=== PATIENT | female | born 1945 | race African-American/Black ===

== ENCOUNTER 2016-12-08 13:08 | Inpatient (IN) ==
[2016-12-08 14:22] LABS: Basophils # 0.1 10*3/uL (0.0-0.2); Basophils % 0.9 % (0.0-0.8); Eosinophils # 0.3 10*3/uL (0.0-0.87); Eosinophils % 4.2 % (0.00-10.9); Hematocrit 39.6 VOL% (35.7-47.0); Hemoglobin 13.6 GM/DL (12.0-16.0); Immature Granulocytes % 0.4 %; Immature Granulocytes Absolute 0.03 #; Lymphocytes # 1.8 10*3/uL (1.4-4.0); Lymphocytes % 23.8 % (21.3-54.2); Mean Corpuscular HGB Conc 34.3 GM/DL (32-36); Mean Corpuscular Hemoglobin 30 PG (27-34); Mean Corpuscular Volume 88.6 FL (87-102); Mean Platelet Volume 11.9 FL (9.6-12.0); Monocytes # 0.6 10*3/uL (0.11-0.8); Monocytes % 7.3 % (1.7-12.7); Neutrophils # 4.9 10*3/uL (1.4-7.4); Neutrophils % 63.4 % (38.7-73.9); Platelet Count 203 T/CUMM (130-400); Red Blood Count 4.47 MC/CUMM (3.8-5.5); Red Cell Distribution Width 11.9 % (9.3-17.3); White Blood Count 7.7 T/CUMM (4-12)
[2016-12-08 14:24] LABS: Apearance,Urine CLEAR (Clear); Bilirubin,Urine Negative (Negative); Blood, Urine Negative (Negative); Glucose,Urine (UA) Negative (Negative); Ketones,Urine Negative (Negative); Nitrite,Urine Negative (Negative); Protein,Urine Negative; RBC,Urine 1 /HPF (0-4); Squamous Epithelial Cell,Urine Occasional /HPF (0-10); Urine Color Straw (Yellow); Urine Specific Gravity 1.002 (1.001-1.035); Urine Urobilinogen < 2.0 EU/DL (0.2-1.0); WBC,Urine 1 /HPF (0-6)
[2016-12-08 14:35] LABS: INR 1.1; PT Patient Result 11.3 SECS; Partial Thromboplastin Time 40.6 SECS (0-40)
--- NOTE | 2016-12-08 14:40 | XRay Report ---
XR chest 2V Indication: Chest pain. Chest 2 views: Comparison 07/11/2009. The heart size and mediastinal contour are normal. The lungs and pleural spaces are clear. Bones are unremarkable. Impression: Negative chest. PROCEDURE INTERPRETED AT [facility] DEPARTMENT OF RADIOLOGY Final Report Signed by: Michael Balderas M.D.
[2016-12-08 14:50] LABS: Magnesium 2.3 MG/DL (1.8-2.4)
[2016-12-08 14:56] LABS: Albumin 3.6 G/DL (3.4-5.0); Bilirubin,Total 0.7 MG/DL (0.2-1.0); Calcium 9.7 MG/DL (8.5-10.1); Osmolality,Calculated 283.1 MOS/KG (273-304); Potassium 3.7 MMOL/L (3.5-5.1); Total Protein 7.4 G/DL (6.4-8.3)
--- NOTE | 2016-12-08 15:26 | Emergency Department Note ---
Arrival - Arrival Chief Complaint: Chest Pain Stated Complaint: heart racing ED Nursing Triage Note: PT C/O MIDSTERNAL CHEST PAIN X1 WEEK WITH INTERMITTENT FEELINGS OF HER HEART RACING AND SHORTNESS OF BREATH. Mode of Arrival: Ambulatory Time Seen by Provider: 12/08/16 15:10 - History of Present Illness HPI Narrative: Patient presents to the ER today with complaints of heart racing since last week. She states is worse today. He states when her heart races she gets short of breath, fatigued, and very nauseated. She states she has noticed over the past few days she has been getting short of breath with any kind of exertion and feels like she is going to pass out. She also noted some minor feet swelling around the night but states after a few days it went away. She states she had a stress test "a long time ago" and states it was negative. She states her heart doctor told her she does not need to see him anymore so she never went back. She states her family doctor told her she has some murmur but does not think she ever had an echo. She denies fever. PCP-Dr. Scott Allergies-iodine PMH-hypertension, thyroid disorder, depression Date of Last Menstrual Period: HENRY Allergies/Adverse Reactions: Allergies Allergy/AdvReac Type Severity Reaction Status Date / Time iodine Allergy Unknown/Unable Verified 12/08/16 13:15 to obtain Review of System - Review of System 12 point system: reviewed and no additional remarkable complaints except as stated - Review of System Constitutional: Absent: chills, fever Cardiovascular: Present: as per HPI, chest pain, palpitations, dyspnea on exertion, edema, syncope (Near syncope with exertion) Gastrointestinal: Present: as per HPI, nausea. Absent: abdominal pain, vomiting , diarrhea, constipation Endocrine: Present: as per HPI, fatigue Medical,Surgical,& Family Hx - Medical History Cardio: History of: Hypertension Psychological: History of: Depression Endocrine: History of: Thyroid Disorder - Social History Smoking Status: Never smoker Frequency of Alcohol Use: None Type of Drug Use: None Exam Physical Examination: General General appearance: 71-year-old black female is alert and in no apparent distress - Head Head exam: Present: atraumatic, normocephalic, normal inspection - Eye Eye exam: Present: normal appearance, PERRL, EOMI - ENT ENT exam: Present: mucous membranes moist - Neck Neck exam: Present: normal inspection, full ROM, trachea midline - Chest Chest inspection: Present: normal inspection, symmetric chest wall rise - Respiratory Respiratory exam: Present: normal lung sounds bilaterally - Cardiovascular Cardiovascular exam: Present: irregular rate, abnormal heart sounds - Abdominal Exam Abdominal exam: Present: soft, normal bowel sounds,nontender - Rectal Exam Rectal exam: Present: deferred - Extremities Exam Extremities exam: Present: normal inspection, full ROM, normal capillary refill , no edema noted on exam - Back Exam Back exam: Present: normal inspection, full ROM - Neurological Exam Neurological exam: Present: alert, oriented X3, CN II-XII grossly intact - Psychiatric Psychiatric exam: Present: normal affect, normal mood - Skin Skin exam: Present: warm, dry, intact, normal color, Vital Signs: Vital Signs Temperature 98.3 F 12/08/16 15:11 Pulse Rate 85 12/08/16 15:11 Respiratory Rate 16 12/08/16 15:11 Blood Pressure 135/86 12/08/16 15:11 O2 Sat by Pulse Oximetry 98 12/08/16 13:12 Course Course Narrative: 1525: michelle hospitalist 1536: spoke with hospitalist team, they will come see her 1559: Josiane Hospitalist [employer] ANALYST assessed the patient and will admit the patient Results - Labs CBC & BMP: 12/08/16 14:01 12/08/16 14:01 Labs: Laboratory Tests 12/08/16 14:01 INR 1.1 PT Patient/Control Mix 11.3 Circ Anticoag PTT 40.6 H Laboratory Tests 12/08/16 12/08/16 12/08/16 14:01 14:01 14:01 Sodium 142 Potassium 3.7 Chloride 109 H Carbon Dioxide 26 Anion Gap 10.7 BUN 12 Creatinine 0.90 GFR Calculation 74 BUN/Creatinine Ratio 13.00 Glucose 111 H Calculated Osmolality 283.1 Calcium 9.7 Magnesium Total Bilirubin 0.70 AST 18 ALT 27 Alkaline Phosphatase 98 Troponin I < 0.015 B-Natriuretic Peptide 252 H Total Protein 7.4 Albumin 3.6 Globulin 3.8 H Albumin/Globulin Ratio 0.9 L Lipase 12/08/16 14:01 Sodium Potassium Chloride Carbon Dioxide Anion Gap BUN Creatinine GFR Calculation BUN/Creatinine Ratio Glucose Calculated Osmolality Calcium Magnesium 2.3 Total Bilirubin AST ALT Alkaline Phosphatase Troponin I B-Natriuretic Peptide Total Protein Albumin Globulin Albumin/Globulin Ratio Lipase 141.0 Laboratory Tests 12/08/16 14:01 Urine Color Straw Urine Appearance Clear Urine pH 6.0 Ur Specific [place] 1.002 Urine Protein Negative Urine Glucose (UA) Negative Urine Ketones Negative Urine Blood Negative Urine Nitrate Negative Urine Bilirubin Negative Urine Urobilinogen < 2.0 H Urine Leukocytes Negative Urine RBC 1 Urine WBC 1 Ur Squamous Epith Cells Occasional Ur Culture Indicated? Not indicated - EKG EKG results: interpreted by ERMD - Impressions Ordering Physician: Peg Packer NP Date of Service: 12/08/16 Procedure(s): XR chest 2V Accession Number(s): [id number] cc: Peg Packer NP~ XR chest 2V Indication: Chest pain. Chest 2 views: Comparison 07/11/2009. The heart size and mediastinal contour are normal. The lungs and pleural spaces are clear. Bones are unremarkable. Impression: Negative chest. PROCEDURE INTERPRETED AT [facility] DEPARTMENT OF RADIOLOGY Final Report Signed by: Michael Balderas M.D. - Diagnostic Findings Procedure: Chest x-ray: report reviewed by me (See Impression ) Disposition Clinical Impression: SOB (shortness of breath) on exertion, Heart palpitations Case discussed with: patient Disposition: Still a Patient Condition: Stable
--- NOTE | 2016-12-08 16:22 | Hospitalist History & Physical ---
Assessment and Plan - Time spent with patient Time spent with patient: Greater than 30 minutes (1) Heart palpitations Status: Acute Assessment and plan: Heart palpitations with mid sternal chest discomfort, increased fatigue, exertional shortness of breath, and dizziness for 2-3 days. Will admit to TU for close monitoring. Serial Troponin, repeat EKG, Thyroid levels, will discuss with Dr Acosta for further recommendations with care. Current Visit: Yes (2) Fatigue Status: Acute Assessment and plan: Increased fatigue 2-3 days with increased need to frequently rest and shortness of breath especially with exertion. Will admit on TU for close monitoring. Current Visit: Yes (3) SOB (shortness of breath) on exertion Status: Acute Assessment and plan: Will admit. Supplemental oxygen ordered. Will discuss with Dr Acosta for further recommendations of care. Current Visit: Yes History of Present Illness Chief complaint: chest pain, shortness of breath, History of present illness: Ms. Reza is a 71 year old black female w/ PMHx hypertension, depression, thyroid, fatigue, anxiety; presented to the ED for further evaluation of shortness of breath especially with exertion, heart "racing", mid-sternal chest discomfort, and worsening fatigue for the past 2-3 days. Patient reports worsening fatigue and having to frequently rest after trying to do things around the house, so that she can "catch my breath". She reports dizziness with the shortness of breath. She denies any nausea, vomiting, fever or chills. In ED: CXR: negative chest. WBC 7.7; H&H 13.6 & 39.6; INR 1.1; PT 11.3; PTT 40.6; NA 142; K 3.7; BUN 12; Creatinine 0.90; Ca 9.7; Mag 2.3; Troponin < 0.015; Urinalysis negative. She denies smoking, denies alcohol use and denies drug use. After discussion with Peg WHEELER in ED and Dr Acosta in Hospital Medicine, it was agreed to admit patient for further evaluation of chest discomfort, shortness of breath and associated dizziness. Allergies Allergy/AdvReac Type Severity Reaction Status Date / Time iodine Allergy Unknown/Unable Verified 12/08/16 13:15 to obtain Medical,Surgical,& Family Hx - Medical History Cardio: History of: Hypertension Psychological: History of: Anxiety Disorders, Depression Endocrine: History of: Thyroid Disorder - Social History Smoking Status: Never smoker Frequency of Alcohol Use: None Type of Drug Use: None Marital Status: Lives With:: a cousin lives in her home too Functional capacity: independent ambulation Review of systems: ROS completed and pertinent positives and negatives in the HPI. Exam - Constitutional Vitals: Period Temp Pulse Resp BP Sys/Son Pulse Ox Last 24 Hr 98.3 F-98.3 F 67-85 16-16 135-135/68-86 98 General appearance: normal weight, no acute distress - Head Head exam: Present: normal inspection - Eye Eye exam: Present: EOMI Pupils: Present: BEVERLY - Neck Neck exam: Present: normal inspection, other (s/p thryroidectomy 2003). Absent : thyromegaly - Respiratory Respiratory exam: Present: clear to auscultation bilaterally. Absent: rhonchi, stridor, wheezes - Cardiovascular Cardiovascular exam: Present: irregular rhythm - GI/Abdominal GI/Abdominal exam: Present: normal bowel sounds, soft. Absent: tenderness, rebound - Extremities Exam Extremities exam: Present: normal inspection, full ROM. Absent: edema - Neurological Exam Neurological exam: Present: alert, oriented X3 - Psychiatric Psychiatric exam: Present: normal affect, normal mood. Absent: agitated, anxious - Skin Skin exam: Present: normal color, warm, dry Results - Labs CBC & BMP: 12/08/16 14:01 12/08/16 14:01 Lab Results: I have reviewed the past 24 hour labs - EKG EKG results: interpreted by ERMD - Diagnostic Findings Procedure: Chest x-ray: report reviewed by me (negative)
[2016-12-08] MEDS ORDERED: ACETAMINOPHEN 325 MG TABLET PO PRN (16:36)
[2016-12-08] MEDS ORDERED: DOCUSATE SODIUM 100 MG CAPSULE PO PRN (16:36)
[2016-12-08] MEDS ORDERED: ONDANSETRON 4 MG/2 ML VIAL IV PRN (16:36)
[2016-12-08] MEDS: ENOXAPARIN 40 MG/0.4 ML SYRINGE SUBCUT SCH ×2 (18:13→18:27)
[2016-12-08] MEDS: SODIUM CHLORIDE 0.9% 1,000 ML IV SCH (18:14)
[2016-12-08] MEDS: ZALEPLON 5 MG CAPSULE PO PRN (20:32)
[2016-12-09] MEDS: SODIUM CHLORIDE 0.9% 1,000 ML IV SCH ×2 (02:23→11:15)
[2016-12-09 04:39] LABS: Basophils % 0.7 % (0.0-0.8); Eosinophils # 0.4 10*3/uL (0.0-0.87); Eosinophils % 5.7 % (0.00-10.9); Hematocrit 35.4 VOL% (35.7-47.0); Immature Granulocytes % 0.3 %; Immature Granulocytes Absolute 0.02 #; Lymphocytes % 32.4 % (21.3-54.2); Mean Corpuscular HGB Conc 33.9 GM/DL (32-36); Mean Corpuscular Hemoglobin 30 PG (27-34); Mean Corpuscular Volume 89.6 FL (87-102); Mean Platelet Volume 11.9 FL (9.6-12.0); Monocytes # 0.4 10*3/uL (0.11-0.8); Monocytes % 6.5 % (1.7-12.7); Neutrophils # 3.3 10*3/uL (1.4-7.4); Neutrophils % 54.4 % (38.7-73.9); Platelet Count 176 T/CUMM (130-400); Red Blood Count 3.95 MC/CUMM (3.8-5.5); Red Cell Distribution Width 11.9 % (9.3-17.3); White Blood Count 6.1 T/CUMM (4-12)
[2016-12-09 05:12] LABS: Albumin 3.2 G/DL (3.4-5.0); Bilirubin,Total 0.7 MG/DL (0.2-1.0); Calcium 8.1 MG/DL (8.5-10.1); Osmolality,Calculated 285.7 MOS/KG (273-304); Potassium 3.4 MMOL/L (3.5-5.1); Risk Ratio 3.02; Total Protein 6.1 G/DL (6.4-8.3)
[2016-12-09 05:34] LABS: Free T4 (Free Thyroxine) 1.15 NG/DL (0.76-1.46); Thyroid Stimulating Hormone 2.71 uIU/ml (0.358-3.74)
--- NOTE | 2016-12-09 08:13 | EKG Report ---
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
[2016-12-09] MEDS: PANTOPRAZOLE 40 MG TABLET PO SCH (08:47)
--- NOTE | 2016-12-09 08:52 | EKG Report ---
Stationary ECG Study [facility] ER Test Date: 12/08/2016 1:18:07 PM Pat Name: ZEINA TELLES Department: Room: 267 Gender: F Lead Caregiver: Kirill Jara : 1945 Requested by: Peg Packer Order Number: [id number] Reading MD: FERNANDEZ HARO Intervals [place] Rate: 66 P: 58 [place]: 141 QRS: 55 QRSD: 73 T: 56 QT: 393 QTc: 407 Interpretive Statements SINUS RHYTHM WITH OCCASIONAL SUPRAVENTRICULAR PREMATURE COMPLEXES NONSPECIFIC T WAVE ABNORMALITY Electronically Signed On 12-09-16 15:52:02 CDT by FERNANDEZ HARO [email or web address]
[2016-12-09] MEDS ORDERED: POTASSIUM CHLORIDE 20 MEQ TABLET PO ONE ×2 (08:54→10:00)
[2016-12-09] MEDS ORDERED: CARVEDILOL 3.125 MG TABLET PO SCH (09:00)
--- NOTE | 2016-12-09 09:33 | Cardiology Consult Note ---
Assessment and Plan - Time spent with patient Time spent with patient: Greater than 30 minutes (1) Paroxysmal SVT (supraventricular tachycardia) Status: Acute Assessment and plan: It appears that patient is having runs of SVT. At home, patient has been taking metoprolol succinate 25 mg every morning. She reports great compliance with this medication. I discussed this personally with Dr. Alexander. We will begin carvedilol. We will continue to monitor patient on the groundwater monitoring technician. We can consider consulting electrophysiology for possible ablation in her future if this does not help her symptoms. Current Visit: Yes (2) Shortness of breath Status: Acute Assessment and plan: Most likely secondary to patient's paroxysmal SVT. Echocardiogram has been ordered per hospital medicine. This is pending. Current Visit: Yes (3) Heart palpitations Status: Acute Assessment and plan: See SVT. Current Visit: Yes (4) Hypokalemia Status: Acute Assessment and plan: We will replace per protocol. 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 Reza is a 71 year old female without known history of coronary artery disease, followed by Dr. Alonso in the remote past. Patient has cardiac risk factors significant for advanced age, hypertension and sedentary lifestyle. Patient is a lifetime non-smoker. She denies any significant family history of coronary artery disease. Patient has a past medical history of depression, anxiety, palpitations and thyroid disorder. Patient was seen by Dr. Alonso back in 2010. She had stress test performed at that time. Perfusion scan suggested normal myocardial perfusion without good evidence to suggest myocardial scar or ischemia. She had normal segmental wall motion. Ejection fraction estimated at 77%. Low risk for future cardiovascular events. Her last echocardiogram was performed December 2014. At that time, left ventricular was normal size with normal LV systolic function, ejection fraction 55%. Mild concentric LVH. Trace mitral insufficiency and 1+ tricuspid insufficiency noted. Pulmonary artery pressure 23 mmHg. No pericardial effusion. Patient presented to [facility] yesterday afternoon with complaints of heart palpitations. She reports that she has been having problems with palpitations for several years. She actually saw Dr. Alonso several years ago for the same problems. However, she feels that her symptoms continue to worsen and last longer. She tells me that these usually occur monthly. However, over the past 1-2 weeks they have been happening at least daily. Usually occurring with exertion. Accompanied with shortness of breath, chest pain and dizziness. She tells me that she actually feels like she is going to pass out. She sits down and rest. This usually makes this better. Yesterday, she reports that her episode was more severe. It lasted longer and it frightened her as she felt that she was going to pass out. She felt that she needed to be further evaluated in the emergency department. Since being admitted to the hospital, she has been noted to have paroxysms of SVT. She has been admitted under hospital medicine service. Cardiology has been consulted to further assist with her symptomology. Of note, patient reports that she has been very stressed lately. This could very well be contributing to her symptomology. Encouraged her to lessen her stress level. She reports that she does drink caffeine regularly. She drinks at least 1-2 cups of tea daily. Patient was seen and examined on the telemetry unit. She is currently without complaints of heart racing, chest pain and shortness of breath. Currently not requiring oxygen. TSH and free T4 normal. Potassium slightly low at 3.4. Will replace as per protocol. Magnesium stable at 2.0. After reviewing groundwater monitoring technician, it appears the patient is having runs of SVT. Chronically, she has been on beta-blockade. She reports great compliance with metoprolol succinate 25 mg daily. I discussed this case personally with Dr. Alexander. We will begin Coreg. We will continue to monitor patient on the groundwater monitoring technician. We can consider consulting electrophysiology for possible ablation in her future if this does not help her symptoms. I will discuss with Dr. Alexander and await his additional recommendations. ASSESSMENT/PLAN: 1. PAROXYSMAL SVT - It appears that patient is having runs of SVT. At home, patient has been taking metoprolol succinate 25 mg every morning. She reports great compliance with this medication. I discussed this personally with Dr. Alexander. We will begin carvedilol. We will continue to monitor patient on the groundwater monitoring technician. We can consider consulting electrophysiology for possible ablation in her future if this does not help her symptoms. 2. HYPERTENSION - Under well control. Continue current plan of care. Monitor blood pressure and adjust medications accordingly this hospitalization. 3. HYPOTHYROIDISM - TSH and free T4 within normal limits. Continue Synthroid. 4. HYPOKALEMIA - Replace per protocol. Could very well be contributing to her paroxysms of SVT CC: Juan Acosta MD - Home Medications and Allergies Home Medications: Home Medications Medication Instructions Recorded Confirmed Type Aspirin EC Tab 81 mg PO QAM 12/08/16 12/08/16 History Cyproheptadine Tab [Periactin Tab] 4 mg PO TID 12/08/16 12/08/16 History Escitalopram Oxalate 20 mg PO QAM 12/08/16 12/08/16 History Ferrous Sulfate [Iron] 325 mg PO QAM 12/08/16 12/08/16 History Levothyroxine Tab [Synthroid Tab] 25 mcg PO DAILY@0700 12/08/16 12/08/16 History Losartan Potassium 100 mg PO QAM 12/08/16 12/08/16 History Metoprolol Succinate 25 mg PO QAM 12/08/16 12/08/16 History Multivitamin/Iron/Folic Acid 1 each PO QAM 12/08/16 12/08/16 History [Centrum Complete Multivit Tab] [place]-3/Dha/Epa/Fish Oil [Fish Oil 1 each PO DAILY 12/08/16 12/08/16 History 1,000 mg Softgel] amLODIPine [Norvasc] 10 mg PO QAM 12/08/16 12/08/16 History Allergies/Adverse Reactions: Allergies Allergy/AdvReac Type Severity Reaction Status Date / Time iodine Allergy Unknown/Unable Verified 12/08/16 13:15 to obtain - Constitutional Constitutional: Present: fatigue, lethargy, malaise. Absent: chills, excessive sweating, fever(s), weight gain, weight loss - Cardiovascular Cardiovascular: Present: as per HPI, dyspnea, lightheadedness, palpitations. Absent: diaphoresis, edema, radiating jaw, neck or arm pain, orthopnea, PND - Respiratory Respiratory: Present: as per HPI, dyspnea, change in phlegm color - Gastrointestinal Gastrointestinal: Present: as per HPI. Absent: coffee ground emesis, heartburn , hematemesis, hematochezia, loose stools, melena, nausea, vomiting - Neurological Neurological: Present: as per HPI, dizziness, other (Near syncope). Absent: abnormal gait, abnormal speech, behavioral changes, frequent falls, syncope - Psychiatric Psychiatric: Present: as per HPI, anxiety, depression, panic attacks Medical,Surgical,& Family Hx - Medical History Cardio: History of: Hypertension Psychological: History of: Anxiety Disorders, Depression Endocrine: History of: Thyroid Disorder - Social History Smoking Status: Never smoker Frequency of Alcohol Use: None Type of Drug Use: None Marital Status: Lives With:: Alone Functional capacity: independent ambulation Physical Examination Vital Signs Temp Pulse Resp BP Pulse Ox 98.3 F 67 16 135/68 98 12/08/16 13:12 12/08/16 13:12 12/08/16 13:12 12/08/16 13:12 12/08/16 13:12 Exam: General: Appears well with no apparent distress. Pleasant and cooperative. Appears comfortable. HEENT: PERRL, normocephalic, atraumatic. Mucous membranes moist. No jaundice noted. Conjunctiva moist and clear, sclerae anicteric Neck: No JVD/HJRor lymphadenopathy noted. No carotid bruit appreciated Cardiac: Regular rate and rhythm. Lungs: Clear to auscultation without accessory muscle use to assist the respiratory pattern. Abdomen: Soft, bowel sounds normoactive. Nontender and nondistended. No abdominal bruit or thrill noted. No masses noted. Extremities: No clubbing, cyanosis noted. No edema noted. Upper extremity pulses 2+. Lower extremity pulses 2+. Capillary refill less than 3 seconds. Skin: No unusual lesions or rashes. No skin breakdown appreciated. Neuro: Awake, alert and oriented 3. Moves all extremities well without hemiparesis or paralysis. No essential tremor is appreciated. Result/EKG - Labs CBC & BMP: 12/09/16 03:42 12/09/16 03:42 Lab Results: I have reviewed the past 24 hour labs Labs: Laboratory Results - last 24 hr 12/08/16 12/08/16 12/08/16 14:01 14:01 14:01 WBC RBC Hgb Hct MCV MCH MCHC RDW Plt Count MPV Neut % (Auto) Lymph % (Auto) Orange % (Auto) Eos % (Auto) Baso % (Auto) Neut # (Auto) Lymph # (Auto) [place] # (Auto) Eos # (Auto) Baso # (Auto) Immature Gran % Nucleated RBC % Immature Gran # Nucleated RBCs # Immature Plt Fraction INR 1.1 PT Patient/Control Mix 11.3 Circ Anticoag PTT 40.6 H Sodium 142 Potassium 3.7 Chloride 109 H Carbon Dioxide 26 Anion Gap 10.7 BUN 12 Creatinine 0.90 GFR Calculation 74 BUN/Creatinine Ratio 13.00 Glucose 111 H Calculated Osmolality 283.1 Calcium 9.7 Magnesium Total Bilirubin 0.70 AST 18 ALT 27 Alkaline Phosphatase 98 Troponin I B-Natriuretic Peptide 252 H Total Protein 7.4 Albumin 3.6 Globulin 3.8 H Albumin/Globulin Ratio 0.9 L Triglycerides Cholesterol LDL Cholesterol VLDL Cholesterol HDL Cholesterol Heart Disease Risk Ratio Lipase Free T4 TSH 3rd Generation Urine Color Urine Appearance Urine pH Ur Specific [place] Urine Protein Urine Glucose (UA) Urine Ketones Urine Blood Urine Nitrate Urine Bilirubin Urine Urobilinogen Urine Leukocytes Urine RBC Urine WBC Ur Squamous Epith Cells Ur Culture Indicated? 12/08/16 12/08/16 12/08/16 14:01 14:01 14:01 WBC 7.7 RBC 4.47 Hgb 13.6 Hct 39.6 MCV 88.6 MCH 30 MCHC 34.3 RDW 11.9 Plt Count 203 MPV 11.9 Neut % (Auto) 63.4 Lymph % (Auto) 23.8 Orange % (Auto) 7.3 Eos % (Auto) 4.2 Baso % (Auto) 0.9 H Neut # (Auto) 4.9 Lymph # (Auto) 1.8 Orange # (Auto) 0.6 Eos # (Auto) 0.3 Baso # (Auto) 0.1 Immature Gran % 0.4 Nucleated RBC % 0.0 Immature Gran # 0.03 Nucleated RBCs # 0.00 Immature Plt Fraction 0.0 INR PT Patient/Control Mix Circ Anticoag PTT Sodium Potassium Chloride Carbon Dioxide Anion Gap BUN Creatinine GFR Calculation BUN/Creatinine Ratio Glucose Calculated Osmolality Calcium Magnesium Total Bilirubin AST ALT Alkaline Phosphatase Troponin I < 0.015 B-Natriuretic Peptide Total Protein Albumin Globulin Albumin/Globulin Ratio Triglycerides Cholesterol LDL Cholesterol VLDL Cholesterol HDL Cholesterol Heart Disease Risk Ratio Lipase Free T4 TSH 3rd Generation Urine Color Straw Urine Appearance Clear Urine pH 6.0 Ur Specific [place] 1.002 Urine Protein Negative Urine Glucose (UA) Negative Urine Ketones Negative Urine Blood Negative Urine Nitrate Negative Urine Bilirubin Negative Urine Urobilinogen < 2.0 H Urine Leukocytes Negative Urine RBC 1 Urine WBC 1 Ur Squamous Epith Cells Occasional Ur Culture Indicated? Not indicated 12/08/16 12/08/16 12/09/16 14:01 21:28 03:42 WBC RBC Hgb Hct MCV MCH MCHC RDW Plt Count MPV Neut % (Auto) Lymph % (Auto) Orange % (Auto) Eos % (Auto) Baso % (Auto) Neut # (Auto) Lymph # (Auto) [place] # (Auto) Eos # (Auto) Baso # (Auto) Immature Gran % Nucleated RBC % Immature Gran # Nucleated RBCs # Immature Plt Fraction INR PT Patient/Control Mix Circ Anticoag PTT Sodium Potassium Chloride Carbon Dioxide Anion Gap BUN Creatinine GFR Calculation BUN/Creatinine Ratio Glucose Calculated Osmolality Calcium Magnesium 2.3 Total Bilirubin AST ALT Alkaline Phosphatase Troponin I < 0.015 < 0.015 B-Natriuretic Peptide Total Protein Albumin Globulin Albumin/Globulin Ratio Triglycerides Cholesterol LDL Cholesterol VLDL Cholesterol HDL Cholesterol Heart Disease Risk Ratio Lipase 141.0 Free T4 TSH 3rd Generation Urine Color Urine Appearance Urine pH Ur Specific [place] Urine Protein Urine Glucose (UA) Urine Ketones Urine Blood Urine Nitrate Urine Bilirubin Urine Urobilinogen Urine Leukocytes Urine RBC Urine WBC Ur Squamous Epith Cells Ur Culture Indicated? 12/09/16 12/09/16 12/09/16 03:42 03:42 03:42 WBC 6.1 RBC 3.95 Hgb 12.0 Hct 35.4 L MCV 89.6 MCH 30 MCHC 33.9 RDW 11.9 Plt Count 176 MPV 11.9 Neut % (Auto) 54.4 Lymph % (Auto) 32.4 Orange % (Auto) 6.5 Eos % (Auto) 5.7 Baso % (Auto) 0.7 Neut # (Auto) 3.3 Lymph # (Auto) 2.0 [place] # (Auto) 0.4 Eos # (Auto) 0.4 Baso # (Auto) 0.0 Immature Gran % 0.3 Nucleated RBC % 0.0 Immature Gran # 0.02 Nucleated RBCs # 0.00 Immature Plt Fraction 0.0 INR PT Patient/Control Mix Circ Anticoag PTT Sodium 145 Potassium 3.4 L Chloride 112 H Carbon Dioxide 26 Anion Gap 10.4 BUN 7 Creatinine 0.60 GFR Calculation 106 BUN/Creatinine Ratio 11.00 Glucose 102 Calculated Osmolality 285.7 Calcium 8.1 L Magnesium Total Bilirubin 0.70 AST 13 ALT 22 Alkaline Phosphatase 77 Troponin I B-Natriuretic Peptide Total Protein 6.1 L Albumin 3.2 L Globulin 2.9 Albumin/Globulin Ratio 1.1 Triglycerides 100 Cholesterol 175 LDL Cholesterol 101.0 VLDL Cholesterol 20.0 HDL Cholesterol 58 Heart Disease Risk Ratio 3.02 Lipase Free T4 1.15 TSH 3rd Generation 2.710 Urine Color Urine Appearance Urine pH Ur Specific [place] Urine Protein Urine Glucose (UA) Urine Ketones Urine Blood Urine Nitrate Urine Bilirubin Urine Urobilinogen Urine Leukocytes Urine RBC Urine WBC Ur Squamous Epith Cells Ur Culture Indicated?
[2016-12-09] MEDS ORDERED: DIAZEPAM 5 MG TABLET PO ONE (10:06)
[2016-12-09] MEDS ORDERED: diphenhydrAMINE CAP 25 MG CAPSULE PO ONE (10:06)
[2016-12-09] MEDS ORDERED: diphenhydrAMINE 50 MG/1 ML VIAL IV ONE (10:11)
[2016-12-09] MEDS: MAGNESIUM OXIDE 400 MG TABLET PO SCH ×3 (10:50→21:29)
[2016-12-09] MEDS: methylPREDNISolone SOD SUC 125 MG/2 ML VIAL IV SCH ×2 (10:52→23:31)
[2016-12-09] MEDS: FAMOTIDINE 20 MG/2 ML VIAL IV SCH ×2 (10:52→23:31)
[2016-12-09] MEDS: SODIUM CHLORIDE 0.45% 1,000 ML IV SCH ×2 (11:11→21:29)
--- NOTE | 2016-12-09 11:17 | Electrophysiology Consultation ---
History of Present Illness - Data of Consult Patient: new to practice Consult date: 12/09/16 Requesting Physician: ivy - Consult Narrative Reason for consult: SVT History of present illness: Ms. Reza is a 71 year old female, followed by Dr. Alonso. She has history of frequent palpitations, for several years now. Recently, she also noted episodes of intermittent lightheadedness, presyncope. No ar syncope. She was admitted with palpitations and was found to have very frequent rounds of SVT , suggestive of atrial tachycardia. The P-wave morphology seems to be quite uniform, although the cycle axis occasional variable. Heart rate goes up to 220 bpm in the arrhythmia. The rounds are usually short, and in no A. fib is documented so far. Telemetry showed mostly sinus rhythm/sinus bradycardia at baseline, after several AT episodes, she had several seconds of junctional escape rhythm, around 50 bpm. Her beta-rhona was held. Ischemia evaluation is planned and echo is ordered. Stress and coffee seemed to exacerbate her symptoms. History of hypertension, well controlled. Hypothyroidism, euthyroid on Synthroid. She got premed for the planned cardiac catheterization, most of the history was obtained from chart review and from her relative. CC: Juan Acosta MD - Home Medications and Allergies Home Medications: Home Medications Medication Instructions Recorded Confirmed Type Aspirin EC Tab 81 mg PO QAM 12/08/16 12/08/16 History Cyproheptadine Tab [Periactin Tab] 4 mg PO TID 12/08/16 12/08/16 History Escitalopram Oxalate 20 mg PO QAM 12/08/16 12/08/16 History Ferrous Sulfate [Iron] 325 mg PO QAM 12/08/16 12/08/16 History Levothyroxine Tab [Synthroid Tab] 25 mcg PO DAILY@0700 12/08/16 12/08/16 History Losartan Potassium 100 mg PO QAM 12/08/16 12/08/16 History Metoprolol Succinate 25 mg PO QAM 12/08/16 12/08/16 History Multivitamin/Iron/Folic Acid 1 each PO QAM 12/08/16 12/08/16 History [Centrum Complete Multivit Tab] [place]-3/Dha/Epa/Fish Oil [Fish Oil 1 each PO DAILY 12/08/16 12/08/16 History 1,000 mg Softgel] amLODIPine [Norvasc] 10 mg PO QAM 12/08/16 12/08/16 History Allergies/Adverse Reactions: Allergies Allergy/AdvReac Type Severity Reaction Status Date / Time iodine Allergy Unknown/Unable Verified 12/08/16 13:15 to obtain Medical,Surgical,& Family Hx - Medical History Cardio: History of: Hypertension Psychological: History of: Anxiety Disorders, Depression Endocrine: History of: Thyroid Disorder - Social History Smoking Status: Never smoker Frequency of Alcohol Use: None Type of Drug Use: None 12 point system: reviewed and no additional remarkable complaints except as stated Exam - Constitutional Vitals: Period Temp Pulse Resp BP Sys/Son Pulse Ox Last 24 Hr 98.0 F-98.5 F 50-85 16-20 109-144/58-86 96-99 General appearance: normal weight, no acute distress - Head Head exam: Present: normal inspection. Absent: normocephalic - Eye Eye exam: Absent: conjunctival injection, scleral icterus Pupils: Absent: dilated - ENT ENT exam: Present: normal external ear exam - Neck Neck exam: Present: normal inspection - Respiratory Respiratory exam: Present: clear to auscultation bilaterally. Absent: chest wall tenderness, prolonged expiratory phase - Cardiovascular Cardiovascular exam: Present: irregular rhythm, tachycardia. Absent: JVD, systolic murmur - GI/Abdominal GI/Abdominal exam: Present: normal bowel sounds. Absent: distended - Extremities Exam Extremities exam: Present: normal inspection, normal capillary refill. Absent: edema - Back Exam Back exam: Present: normal inspection - Neurological Exam Neurological exam: Present: alert, oriented X3 - Psychiatric Psychiatric exam: Present: normal affect, normal mood - Skin Skin exam: Present: normal color, warm. Absent: cyanosis Results - Labs CBC & BMP: 12/09/16 03:42 12/09/16 03:42 Lab Results: I have reviewed the past 24 hour labs Assessment and Plan (1) Paroxysmal SVT (supraventricular tachycardia) Status: Acute Assessment and plan: 71-year-old female, with very frequent NSAT/RVR, presyncope, underlying sinus bradycardia, with a documented long conversion pauses or syncopal episode. -[facility], echo planned for today -She seems to have underlying sinus node dysfunction, no high-risk symptoms or bradyarrhythmia so far. Her arrhythmia is very frequent, the P wave morphology seems to be quite uniform. -Based on the results on the planned workup, we may try arrhythmia suppression with metoprolol + flecainide. We will need to monitor her on telemetry, as may worsen underlying SND. If unable to tolerate medications, the arrhythmia morphology suggests EP study/ablation may be an option. No AF documented so far. -If the arrhythmia is multifocal on EPS, or sinus node dysfunction becomes more pronounced, she would be a candidate for a dual-chamber pacemaker. Current Visit: Yes (2) SOB (shortness of breath) on exertion Status: Acute Current Visit: Yes (3) Hypokalemia Status: Acute Current Visit: Yes
--- NOTE | 2016-12-09 11:23 | Hospitalist Progress Note ---
Assessment and Plan - Time spent with patient Time spent with patient: Less than 30 minutes (1) Heart palpitations Status: Acute Assessment and plan: 12/09/16 Cardiology is following and appreciate recommendations with care and they discussed care for findings of resting sinus bradycardia with frequent PACs and some parxysmal supraventricular tachycardia. Cardiology plan for possible heart catherization later today. Hypokalemia, will replace with protocol. Thyroid stable on synthroid, serial troponin negative. Echo was ordered, pending results. Will continue to follow cardiology recommendations. 12/08/16 Heart palpitations with mid sternal chest discomfort, increased fatigue , exertional shortness of breath, and dizziness for 2-3 days. Will admit to [facility] for close monitoring. Serial Troponin, repeat EKG, Thyroid levels, will discuss with Dr Acosta for further recommendations with care. Current Visit: Yes (2) Fatigue Status: Acute Assessment and plan: 12/09/16 - Resting in bed talking with family, no acute distress noted. Denies shortness of breath, denies SOB with ambulation. Will continue to monitor. Increased fatigue 2-3 days with increased need to frequently rest and shortness of breath especially with exertion. Will admit on TU for close monitoring. Current Visit: Yes (3) SOB (shortness of breath) on exertion Status: Acute Assessment and plan: 12/09/16 - Will continue to monitor for recurrent shortness of breath with exertion. Will admit. Supplemental oxygen ordered. Will discuss with Dr Acosta for further recommendations of care. Current Visit: Yes Hospitalist: Subjective Interval history: 12/09/16 Ms Reza seen and chart reviewed. She is sitting up in bed talking with family without any distress noted. She verbalized feeling better this a.m. Denies any more shortness of breath, denies chest pain this morning. She reports occasional having some "heart palpitations" without chest pain but did have some associated nausea, and it only last very briefly. Exam - Constitutional Vitals: Period Temp Pulse Resp BP Sys/Son Pulse Ox Last 24 Hr 98.0 F-98.5 F 50-85 16-20 109-144/58-86 96-99 General appearance: normal weight - Head Head exam: Present: normal inspection - Eye Eye exam: Present: EOMI Pupils: Present: [place] - Neck Neck exam: Present: normal inspection. Absent: thyromegaly - Respiratory Respiratory exam: Present: clear to auscultation bilaterally. Absent: rhonchi, stridor, wheezes - Cardiovascular Cardiovascular exam: Present: regular rate and rhythm - GI/Abdominal GI/Abdominal exam: Present: normal bowel sounds - Extremities Exam Extremities exam: Present: full ROM. Absent: edema - Neurological Exam Neurological exam: Present: alert, oriented X3 - Psychiatric Psychiatric exam: Present: normal affect, normal mood. Absent: agitated, anxious - Skin Skin exam: Present: normal color, warm, dry Results - Labs CBC & BMP: 12/09/16 03:42 12/09/16 03:42 Lab Results: I have reviewed the past 24 hour labs Labs: ECHO pending completion
[2016-12-09] MEDS ORDERED: HEPARIN/NACL 0.9% 2 UNITS/ML 1,000 ML IV ONE (12:35)
[2016-12-09] MEDS ORDERED: LIDOCAINE 1% 20 ML VIAL ONE (12:35)
[2016-12-09] MEDS ORDERED: MIDAZOLAM 2 MG/2 ML VIAL ONE (13:14)
[2016-12-09] MEDS ORDERED: fentaNYL 100 MCG/2 ML VIAL ONE (13:14)
[2016-12-09] MEDS ORDERED: ASPIRIN CHEW 81 MG TABLET PO ONE (13:25)
--- NOTE | 2016-12-09 13:26 | History and Physical Update ---
Sedation H&P Update - History and Physical H&P was reviewed, the patient examined and there: are no changes in the patients condition since last H&P was completed. - Dictation Physical: refer to H&P completed by admitting physician - Physical Exam Mental Status: alert and oriented Heart: regular rate and rhythm Lung: clear to auscultation Abdomen: within normal limits Vitals: within normal limits - Sedation Plan for Sedation: moderate Patient Consent: Procedure disscussed with patient and patinet has consented., Risks and benefits were discussed with patient,including infection,, bleeding, injury to surrounding structures, seizure, temporary nerve, Patient understands and accepts potential risks/benefits and agrees to, proceed. ASA Class: III Airway Assessment: Class I: Soft palate, uvula, fauces, pillars visible
[2016-12-09] MEDS ORDERED: MORPHINE 2 MG/1 ML SYRINGE IV PRN (14:00)
--- NOTE | 2016-12-09 14:16 | Cardiology Operative Report ---
Date of Procedure:: 12/09/16 Pre-op diagnosis: Chest pain Post-op diagnosis: other (Normal coronary arteries) Procedure: 1. Selective left and right coronary angiography. 2. Left heart catheterization with left ventriculogram. 3. Right iliac angiography to rule out vascular complications. 4. Application of Mynx hemostasis device to the right femoral arteriotomy site. Impression: 1. Angiographically normal coronary arteries. 2. Right dominant coronary arteries. 3. Ejection fraction 70 %. 4. Angiographically normal right iliac artery without evidence of vascular complications. Plan: 1. Medical management. Equipment: Diagnostic 6 Georgian JL4, JR4, pigtail catheters. Hemodynamics: Aortic pressure 132/66 mmHg, left ventricular pressure 130/3 mmHg, LVEDP 8 mmHg Sedation: Versed 2 mg, fentanyl 50 mcg Procedure: After informed consent was obtained the patient was prepped and draped in sterile fashion. The right groin was infiltrated with 1% lidocaine and the right femoral artery was accessed via modified Seldinger technique using a micropuncture needle and a 6 Georgian femoral arterial sheath was placed. All catheter exchanges were performed over a guidewire under fluoroscopic guidance. Diagnostic 6 Georgian JL4 and JR4 catheters were advanced to the left and right coronary arteries respectively and multiple cineangiograms were performed in varying degrees of obliquity and angulation. Thereafter a pigtail catheter was advanced into the left ventricle where hemodynamics were obtained followed by left ventriculogram. At conclusion of the procedure right iliac angiography was performed to rule out vascular complications. A Mynx hemostasis device was unsuccessfully applied to the right femoral arteriotomy site. Findings: 1. The left main artery is angiographically normal. 2. The left anterior descending artery extends to the apex and wraps around. It is angiographically normal. 3. There is an intermediate ramus branch that is small and angiographically normal. 4. The circumflex artery is a nondominant vessel that gives rise to 4 marginal branches, is angiographically normal. 5. The right coronary artery is a dominant vessel. It is angiographically normal. 6. Ejection fraction is 70 % with normal anterior, inferior and apical wall motion. 7. No significant mitral regurgitation. 8. No significant aortic stenosis. 9. The right iliac artery is angiographically normal without evidence of vascular complications. Contrast use: Omnipaque 40 cc Fluoro time: 1.3 minutes Complications: none Specimens removed: none Devices implanted: Mynx Anesthesia: moderate conscious sedation Surgeon / Physician: Sarina Fermin Funeral Professional: none Estimated blood loss: minimal Specimens: none sent Condition: stable Disposition: floor
[2016-12-09] MEDS: ENOXAPARIN 40 MG/0.4 ML SYRINGE SUBCUT SCH (16:35)
--- NOTE | 2016-12-09 17:15 | Event Note ---
Reviewed LHC, echo. Normal ejection fraction, no significant hypertrophy, mild MR/mild LAE, no PHTN. Still frequent, symptomatic runs of PAT. no significant conversion pauses. Underlying sinus rhythm in the 50s. Discussed risks and benefits of management options. -We will try medical management. Start metoprolol 25 mg twice daily, flecainide 50 mg twice daily. Keep on telemetry. Do not hold any doses, unless she develops symptomatic bradycardia or the heart rate is less than 30 bpm, or significant proarrhythmia is noted. -If she has significant sinus node dysfunction, limiting medical management, ablation is an option as the arrhythmia seems to be quite monomorphic.
[2016-12-09] MEDS: ZALEPLON 5 MG CAPSULE PO PRN (21:28)
[2016-12-09] MEDS: FLECAINIDE 50 MG TABLET PO SCH (21:29)
[2016-12-09] MEDS: METOPROLOL TARTRATE 25 MG TABLET PO SCH (21:29)
[2016-12-10 05:04] LABS: Basophils % 0.1 % (0.0-0.8); Hematocrit 36.5 VOL% (35.7-47.0); Hemoglobin 12.7 GM/DL (12.0-16.0); Immature Granulocytes % 0.7 %; Lymphocytes # 1.1 10*3/uL (1.4-4.0); Lymphocytes % 8.3 % (21.3-54.2); Mean Corpuscular HGB Conc 34.8 GM/DL (32-36); Mean Corpuscular Hemoglobin 31 PG (27-34); Mean Corpuscular Volume 87.7 FL (87-102); Mean Platelet Volume 11.9 FL (9.6-12.0); Monocytes # 0.1 10*3/uL (0.11-0.8); Neutrophils # 12.1 10*3/uL (1.4-7.4); Neutrophils % 89.9 % (38.7-73.9); Platelet Count 186 T/CUMM (130-400); Red Blood Count 4.16 MC/CUMM (3.8-5.5); Red Cell Distribution Width 11.7 % (9.3-17.3); White Blood Count 13.5 T/CUMM (4-12)
[2016-12-10 05:35] LABS: Calcium 8.9 MG/DL (8.5-10.1); Magnesium 2.1 MG/DL (1.8-2.4); Osmolality,Calculated 281.4 MOS/KG (273-304); Potassium 3.8 MMOL/L (3.5-5.1)
[2016-12-10] MEDS ORDERED: LEVOTHYROXINE 25 MCG TABLET PO SCH (07:00)
--- NOTE | 2016-12-10 07:21 | EKG Report ---
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
--- NOTE | 2016-12-10 07:38 | Electrophysiology Progress Not ---
Assessment and Plan (1) Paroxysmal SVT (supraventricular tachycardia) Status: Acute Assessment and plan: 71-year-old female, with very frequent NSAT/RVR, presyncope, underlying sinus bradycardia, without documented long conversion pauses. -PAT. excellent response to a single dose of low-dose metoprolol and flecainide. Continue metoprolol 25 mg twice daily, flecainide 50 mg twice daily. -She had evidence of underlying mild SND, effective suppression of incessant, very fast NSAT may improve this. No high-risk bradyarrhythmia so far. Recurrent presyncope could have been due to prominent RVR or conversion pauses -From an EP perspective, she may be able to go home, on metoprolol and flecainide. -Follow-up with EP in 2 weeks, check 48 hr Holter few days prior to that visit Current Visit: Yes (2) SOB (shortness of breath) on exertion Status: Acute Current Visit: Yes (3) Hypokalemia Status: Acute Current Visit: Yes Electrophysiology Subjective Interval history: Sinus rhythm, with occasional PACs, couplets but no sustained runs of AT last night. She is feeling fine. No significant bradycardia or pauses Exam - Constitutional Vitals: Period Temp Pulse Resp BP Sys/Son Pulse Ox Last 24 Hr 97.5 F-98.5 F 50-67 16-18 109-134/58-77 96-99 General appearance: normal weight, no acute distress - Head Head exam: Present: normal inspection, normocephalic. Absent: contusion - Eye Eye exam: Absent: conjunctival injection, scleral icterus Pupils: Absent: dilated - ENT ENT exam: Present: normal external ear exam - Neck Neck exam: Present: normal inspection - Respiratory Respiratory exam: Present: clear to auscultation bilaterally. Absent: chest wall tenderness - Cardiovascular Cardiovascular exam: Present: regular rate and rhythm. Absent: JVD, systolic murmur - GI/Abdominal GI/Abdominal exam: Present: normal bowel sounds. Absent: distended - Extremities Exam Extremities exam: Present: normal inspection, normal capillary refill. Absent: edema - Back Exam Back exam: Present: normal inspection - Neurological Exam Neurological exam: Present: alert, oriented X3 - Psychiatric Psychiatric exam: Present: normal affect, normal mood - Skin Skin exam: Present: normal color, warm. Absent: cyanosis Results - Labs CBC & BMP: 12/10/16 04:30 12/10/16 04:30 Lab Results: I have reviewed the past 24 hour labs
[2016-12-10] MEDS: MAGNESIUM OXIDE 400 MG TABLET PO SCH (08:55)
[2016-12-10] MEDS: FLECAINIDE 50 MG TABLET PO SCH (08:55)
[2016-12-10] MEDS: PANTOPRAZOLE 40 MG TABLET PO SCH (08:55)
[2016-12-10] MEDS: METOPROLOL TARTRATE 25 MG TABLET PO SCH (08:56)
[2016-12-10] MEDS ORDERED: OMEGA 3 ACID ETHYL ESTERS 1 GM CAPSULE PO SCH (09:00)
[2016-12-10] MEDS ORDERED: METOPROLOL SUCCINATE XL 25 MG TABLET PO SCH (09:00)
[2016-12-10] MEDS ORDERED: LOSARTAN 50 MG TABLET PO SCH (09:00)
[2016-12-10] MEDS ORDERED: FERROUS SULFATE 325 MG TABLET PO SCH (09:00)
[2016-12-10] MEDS ORDERED: amLODIPine 10 MG TABLET PO SCH (09:00)
[2016-12-10] MEDS ORDERED: MULTIVITAMIN (CENTRUM) TABLET PO SCH (09:00)
[2016-12-10] MEDS ORDERED: ASPIRIN EC 81 MG TABLET PO SCH (09:00)
[2016-12-10] MEDS ORDERED: ESCITALOPRAM 10 MG TABLET PO SCH (09:00)
[2016-12-10] MEDS: methylPREDNISolone SOD SUC 125 MG/2 ML VIAL IV SCH (09:52)
[2016-12-10] MEDS: FAMOTIDINE 20 MG/2 ML VIAL IV SCH (10:18)
--- NOTE | 2016-12-10 11:11 | Discharge Summary ---
<Ann Delgado - Last Filed: 12/10/16 12:22> Hospital Course - Hospital Course Hospital Course: Ms Reza 71 y/o black female with PMHx of hypertension, thyroid disorder, anxiety, depression; presented to the ED on 12/08/16 for further evaluation of "heart racing" with mid-sternal chest discomfort, worsening shortness of breath , and weakness for 2-3 days. IN ED: CXR: negative chest. EKG: sinus rhythm w/ occasional supraventricular premature complexes nonspecific T wave abnormality. LABS: WBC 7.7; H&H 13.6 & 39.6; INR 1.1; PT 11.3; Electrolytes within normal range. BUN 12; Creatinine 0.90. Troponin negative. Urinalysis negative. PCP: Dr Nikko Scott. [facility] was consulted for admission and further evaluation. Cardiology was consulted. Follow up Lab evaluation continue to show negative serial troponin; Thyroid: TSH & T4 within therapuetic range. Cardiology: Assessed patient and noted having runs of SVT. Cardiology 12/09/16 took patient to the heart catherization lab for further evaluation and results as followed: Findings: 1. The left main artery is angiographically normal. 2. The left anterior descending artery extends to the apex and wraps around. It is angiographically normal. 3. There is an intermediate ramus branch that is small and angiographically normal. 4. The circumflex artery is a nondominant vessel that gives rise to 4 marginal branches, is angiographically normal. 5. The right coronary artery is a dominant vessel. It is angiographically normal. 6. Ejection fraction is 70 % with normal anterior, inferior and apical wall motion. 7. No significant mitral regurgitation. 8. No significant aortic stenosis. 9. The right iliac artery is angiographically normal without evidence of vascular complications. Dr Najera: Electrophysiology: -PAT. excellent response to a single dose of low- dose metoprolol and flecainide. Continue metoprolol 25 mg twice daily, flecainide 50 mg twice daily. -She had evidence of underlying mild SND, effective suppression of incessant, very fast NSAT may improve this. No high- risk bradyarrhythmia so far. Recurrent presyncope could have been due to prominent RVR or conversion pauses -From an EP perspective: able to go home, on metoprolol and flecainide. and will need to: Follow-up with EP in 2 weeks, check 48 hr Holter few days prior to that visit 12/10/16 - Today patient is feeling better today. She denies any shortness of breath, chest pain, nausea or vomiting. Cardiology will follow up with patient in [address] Najera and patient will need to go home on Holter monitor. Discharge medications to include metoprolol 25 mg twice daily, flecainide 50 mg twice daily, aspirin 81 mg, losartan 100 mg p.o. daily, Norvasc 10 mg p.o. daily. 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 at [employer] and office will give you instructions on holter) Discharge Plan - Discharge Data Disposition: Disch To Home/Self Care - Discharge Medications New Flecainide [Tambocor] 50 mg PO BID #100 tablet Metoprolol Tartrate Tab [Lopressor Tab] 25 mg PO BID #100 tablet Continue Multivitamin/Iron/Folic Acid [Centrum Complete Multivit Tab] 1 each PO QAM Cyproheptadine Tab [Periactin Tab] 4 mg PO TID amLODIPine [Norvasc] 10 mg PO QAM Losartan Potassium 100 mg PO QAM Escitalopram Oxalate 20 mg PO QAM [place]-3/Dha/Epa/Fish Oil [Fish Oil 1,000 mg Softgel] 1 each PO DAILY Aspirin EC Tab 81 mg PO QAM Ferrous Sulfate [Iron] 325 mg PO QAM Levothyroxine Tab [Synthroid Tab] 25 mcg PO DAILY@0700 Discontinued Metoprolol Succinate 25 mg PO QAM - Follow Up or Referral Follow Up: Derick Najera MD [Physician] - 12/23/16 8:20 am (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 Absent: thyromegaly - Respiratory Respiratory exam: Present: clear to auscultation bilaterally. Absent: stridor, wheezes - Cardiovascular Cardiovascular exam: Present: regular rate and rhythm - GI/Abdominal GI/Abdominal exam: Present: normal bowel sounds, soft. Absent: tenderness, rebound - Extremities Exam Extremities exam: Present: full ROM. Absent: edema - Neurological Exam Neurological exam: Present: alert, oriented X3 - Psychiatric Psychiatric exam: Present: normal affect, normal mood - Skin Skin exam: Present: normal color, warm, dry Discharge Results Procedures and tests throughout hospitalization: Pending Orders 12/11/16 04:00 BMP w/ Mg [Basic Metabolic Panel w/Mg] IN AM CBC [Comp Blood Count Auto Diff] IN AM 12/12/16 04:00 BMP w/ Mg [Basic Metabolic Panel w/Mg] IN AM CBC [Comp Blood Count Auto Diff] IN AM 12/13/16 04:00 BMP w/ Mg [Basic Metabolic Panel w/Mg] IN AM CBC [Comp Blood Count Auto Diff] IN AM Labs on day of discharge: Labs from last 24 hours 12/10/16 12/10/16 04:30 04:30 WBC 13.5 H D RBC 4.16 Hgb 12.7 Hct 36.5 MCV 87.7 MCH 31 MCHC 34.8 RDW 11.7 Plt Count 186 MPV 11.9 Neut % (Auto) 89.9 H Lymph % (Auto) 8.3 L [place] % (Auto) 1.0 L Eos % (Auto) 0.0 Baso % (Auto) 0.1 Neut # (Auto) 12.1 H Lymph # (Auto) 1.1 L [place] # (Auto) 0.1 L Eos # (Auto) 0.0 Baso # (Auto) 0.0 Immature Gran % 0.7 Nucleated RBC % 0.0 Immature Gran # 0.10 Nucleated RBCs # 0.00 Immature Plt Fraction 0.0 Sodium 140 Potassium 3.8 Chloride 108 H Carbon Dioxide 22 Anion Gap 13.8 BUN 10 Creatinine 0.90 GFR Calculation 74 BUN/Creatinine Ratio 11.00 Glucose 168 H Calculated Osmolality 281.4 Calcium 8.9 Magnesium 2.1 DS: Provider Date of admission: 12/08/16 16:02 Primary care physician: Lalito Scott MD Attending physician on admission: Juan Acosta MD Consults: 12/08/16 16:41 Consult to Case Mgmt/Social Srvs [CONS] Routine Reason for Case Mgmt/Social Srvs: Discharge Planning 12/08/16 17:58 Consult to Physician [CONS] Routine Comment: palpitations Consulting Provider: Amy Alexander Consult to Specialist Group: Cardiology Person Notified: Mera Date Notified: 12/09/16 Time Notified: 07:45 12/09/16 09:51 Consult to Physician [CONS] Routine Comment: SVT/frequent supraventricular ectopy. Consulting Provider: Derick Najera Person Notified: mera Date Notified: 12/09/16 Time Notified: 10:25 Discharging clinician: Ann Delgado NP <Juan Acosta - Last Filed: 12/10/16 12:56> Discharge Plan - Discharge Data Condition at Discharge: Stable Activity: resume usual activities as tolerated
[2016-12-10 11:31] VITALS: BP 137/58
--- NOTE | 2016-12-10 14:54 | Cardiology Progress Note ---
Jl Joe Lesley, SUMMER, am scribing for, and in the presence of, Adelita Cooper NP 14:54. Assessment and Plan - Time spent with patient Time spent with patient: Greater than 30 minutes (Record review, assessment, and documentation) (1) Hypokalemia Status: Resolved (2) Paroxysmal SVT (supraventricular tachycardia) Status: Resolved (3) Shortness of breath Status: Resolved (4) Heart palpitations Status: Resolved Cardiology - PN: Subj Interval history: Label Rewinder: Dr. Alonso in the remote past The patient underwent left heart cath yesterday, the coronary arteries were found to be angiographically normal with a right dominant system. Ejection fraction of 70%. Echo showed no significant hypertrophy, mild MR, mild LAE, no pulmonary hypertension. 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 Patient was started on metoprolol 25 mg twice daily as well as flecainide 50 mg twice daily for frequent paroxysmal SVT. Patient seen sitting up in bed, no complaints. She is dressed and hoping for discharge home today. Labs reviewed today, notably of WBCs elevated to 13,500. The patient has remained afebrile, denies fever, chills. Lungs are clear, denies complaints of dysuria. Dressing removed from right groin, the shalonda solve out hematoma no bruit auscultated. Electrolytes WNL. Creatinine 0.9. EKG shows sinus rhythm rate in the 60s. Vital signs overnight have remained stable, heart rate in the 50s, blood pressure 131/64. Upon discharge patient will need to 48 hour Holter monitor and follow-up with Dr. Najera in 2 weeks. Discharge medications to include metoprolol 25 mg twice daily, flecainide 50 mg twice daily, aspirin 81 mg, losartan 100 mg p.o. daily, Norvasc 10 mg p.o. daily. Exam (Progress Note) - Constitutional Vitals: Period Temp Pulse Resp BP Sys/Son Pulse Ox Last 24 Hr 97.5 F-98.1 F 53-67 16-18 112-134/61-77 96-99 Exam: General: [Appears well with no apparent distress.] [Pleasant and cooperative. ] [Appears comfortable.] HEENT: [PERRL, normocephalic, atraumatic]. [Mucous membranes moist.] [No jaundice noted.] [Conjunctiva moist and clear, sclerae anicteric.] Neck: [No JVD/HJR, no thyromegaly or lymphadenopathy noted.] [ No carotid bruit appreciated.] Cardiac: [Regular rate and rhythm.] [No murmur rub or gallop.] [PMI is nondisplaced.] Lungs: [Clear to auscultation without accessory muscle use to assist the respiratory pattern.] [No oxygen required] Abdomen: [Soft, bowel sounds normoactive.] [Nontender and nondistended.] [No abdominal bruit or thrill noted.] [No masses noted.] Musculoskeletal: [No fluid collection.] [Full range of motion is noted of all extremities in bed.] Extremities: [No clubbing, cyanosis noted.] [ No edema noted.] [Upper extremity pulses 2+.] [Lower extremity pulses 2+.] [Capillary refill less than 3 seconds.] Right groin soft, no hematoma or bleeding, no bruit auscultated. Skin: [No unusual lesions or rashes.] [No skin breakdown appreciated.] Neuro: [Awake, alert and oriented 3.] [Moves all extremities well without hemiparesis or paralysis.] [No essential tremor is appreciated.] Result/EKG - Labs CBC & BMP: 12/10/16 04:30 12/10/16 04:30 Lab Results: I have reviewed the past 24 hour labs Labs: Laboratory Results - last 24 hr 12/09/16 12/10/16 12/10/16 03:30 04:30 04:30 WBC 13.5 H D RBC 4.16 Hgb 12.7 Hct 36.5 MCV 87.7 MCH 31 MCHC 34.8 RDW 11.7 Plt Count 186 MPV 11.9 Neut % (Auto) 89.9 H Lymph % (Auto) 8.3 L [place] % (Auto) 1.0 L Eos % (Auto) 0.0 Baso % (Auto) 0.1 Neut # (Auto) 12.1 H Lymph # (Auto) 1.1 L [place] # (Auto) 0.1 L Eos # (Auto) 0.0 Baso # (Auto) 0.0 Immature Gran % 0.7 Nucleated RBC % 0.0 Immature Gran # 0.10 Nucleated RBCs # 0.00 Immature Plt Fraction 0.0 Sodium 140 Potassium 3.8 Chloride 108 H Carbon Dioxide 22 Anion Gap 13.8 BUN 10 Creatinine 0.90 GFR Calculation 74 BUN/Creatinine Ratio 11.00 Glucose 168 H Calculated Osmolality 281.4 Calcium 8.9 Magnesium 2.0 2.1 - EKG EKG results: interpreted by me, sinus rhythm Specialty Discharge - Follow Up or Referrals Follow up with: Derick Najera MD [Physician] - 12/23/16 8:20 am (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
--- NOTE | 2016-12-12 17:14 | ECHO Report ---
Nano Reza 12/09/2016 Exam Date: 08:19 Referring Physician: chelsy Linares Technologist: PARESH WILKINSON Age: 71 Ht (in): 64 Wt (lb): 149 FExam [facility] Gender: Echo [id number]: Shortness of breath, Other fatigueIndications: Palpitations BP: 132 / 73 HR: 77 SinusRhythm: Technical Quality: IMPRESSIONS Left ventricular ejection fraction is estimated at 60 %. Diastolic parameters are indeterminant. Tricuspid regurgitation velocities suggest a RVSP of 27 mmHg plus the right atrial pressure. MEASUREMENTS (Male / Female) Normal Values 2D ECHO LV Diastolic Diameter PLAX 3.3 cm 4.2 - 5.9 / 3.9 - 5.3 cm LV Systolic Diameter PLAX 2.2 cm LV Fractional Shortening PLAX 34.1 % IVS Diastolic Thickness 0.9 cm 0.6 - 1.0 / 0.6 - 0.9 cm LVPW Diastolic Thickness 1.0 cm 0.6 - 1.0 / 0.6 - 0.9 cm RV Internal Dim ED PLAX 2.5 cm Aortic Root Diameter 2.8 cm LA Systolic Diameter LX 3.5 cm 3.0 - 4.0 / 2.7 - 3.8 cm DOPPLER TR Peak Velocity 259.0 cm/s TR Peak Gradient 26.8 mmHg FINDINGS Left Ventricle Normal left ventricular cavity size. Normal left ventricular wall thickness. Left ventricular ejection fraction is estimated at 60 %. Diastolic parameters are indeterminant Right Ventricle The right ventricle is normal in size and function. Right Atrium The right atrium is normal in size. Left Atrium The left atrium is normal in size. Mitral Valve Morphologically normal mitral valve. Mild mitral valve regurgitation. Aortic Valve Morphologically normal aortic valve without significant sclerosis or stenosis. There is no aortic regurgitation. Tricuspid Valve Morphologically normal tricuspid valve. Mild tricuspid valve regurgitation. Tricuspid regurgitation velocities suggest a RVSP of 27 mmHg. Pulmonic Valve Morphologically normal pulmonic valve. Mild pulmonary valve regurgitation. Pericardium Normal pericardium without effusion. Aorta Normal ascending aorta dimension. Amy Alexander (Electronically Signed) 12 December 2016 Final Date: 17:13
== END 2016-12-10 13:51 | disposition home or self-care (01) | DRG 287 ==
LOC: N.ED 13:08 → N.EDINP 16:02 → N.TELES 16:33
PROVIDERS: ADMIT Internal Medicine; ATTEND Internal Medicine
PROC: CLCCHCL (ICD-10-PCS; 2016-12-09 13:45)